=== PATIENT | male | born 1950 ===

== ENCOUNTER 2017-03-12 08:22 | Day surgery (SDC) | payer MEDICARE ==
[2017-03-10 09:43] VITALS: BMI 22.1
[2017-03-12] MEDS ORDERED: Atropine 0.4 mg/ml Inj (1 mL) ONE (10:44)
[2017-03-12] MEDS ORDERED: Propofol 10 mg/ml Inj (20 ML) ONE (10:44)
[2017-03-12] MEDS ORDERED: Sodium Chloride 0.9% 1,000 ML IV SCH (11:15)
[2017-03-12 14:08] VITALS: BP 142/87; PULSE 56; RESP 16; TEMP 97.5; O2SAT 100
== END 2017-03-12 13:00 | disposition home or self-care (01) ==
LOC: ENDO 08:22
PROVIDERS: ATTEND Internal Medicine Gastroenterology
DX: Z12.11 Encounter for screening for malignant neoplasm of colon (principal); K57.30 Diverticulosis of large intestine without perforation or abscess without bleeding; K64.8 Other hemorrhoids; Z86.73 Personal history of transient ischemic attack (TIA), and cerebral infarction without residual deficits
CPT/HCPCS: 45378; J0461; J2001; J2704; J7040 ×2

== ENCOUNTER 2018-06-15 04:51 | Observation (INO) | payer MEDICARE, OTHER ==
[2018-06-15 05:16] VITALS: BMI 22.6
[2018-06-15] MEDS ORDERED: Sodium Chloride 0.9% 1,000 ML IV STA ×2 (05:17→06:55)
[2018-06-15] MEDS ORDERED: Morphine 4 mg/ml ISec IVP STA ×2 (05:17→06:09)
--- NOTE | 2018-06-15 05:20 | ED PDOC ---
Arrival/HPI - General Time Seen by Provider: 06/15/18 05:09 Historian: Patient - History of Present Illness Narrative History of Present Illness (Text): 06/15/18 05:16 Sami Shay is a 67 year old male, whose past medical history includes kidney stones, who presents to the Emergency department complaining of worsening right flank pain since waking up this morning. Patient states symptoms are similar to previous episode of kidney stones. Patient denies any fever, chills, nausea, vomiting, diarrhea, urinary symptoms, headache, dizziness, or any other complaints. Symptom Onset: Gradual Symptom Course: Unchanged Activities at Onset: Light Context: Home Past Medical History - Provider Review Nursing Documentation Reviewed: Yes - Cardiac Hx Pacemaker: No - Hematological/Oncological Hx Blood Transfusions: No Hx Blood Transfusion Reaction: No - Musculoskeletal/Rheumatological Hx Musculoskeletal Disorders: Yes - Psychiatric Hx Emotional Abuse: No Hx Physical Abuse: No - Anesthesia Hx Anesthesia Reactions: No Hx Malignant Hyperthermia: No - Suicidal Assessment Feels Threatened In Home Enviroment: No Family/Social History - Physician Review Nursing Documentation Reviewed: Yes Family/Social History: Unknown Family HX Hx Alcohol Use: Yes (OCC BEER) Allergies/Home Meds Allergies/Adverse Reactions: Allergies No Known Allergies Allergy (Verified 06/15/18 05:16) Home Medications: Home Meds Medication Instructions Recorded Confirmed No Known Home Med 06/15/18 06/15/18 Review of Systems - Physician Review All systems were reviewed & negative as marked: Yes - Review of Systems Constitutional: Normal. absent: Fevers Eyes: Normal ENT: Normal Respiratory: Normal. absent: SOB, Cough Cardiovascular: Normal. absent: Chest Pain Gastrointestinal: Normal. absent: Abdominal Pain, Diarrhea, Nausea, Vomiting Genitourinary Male: Normal. absent: Dysuria, Frequency, Hematuria, Urinary Output Changes Musculoskeletal: Back Pain. absent: Neck Pain Skin: Normal. absent: Rash Neurological: Normal. absent: Headache, Dizziness Endocrine: Normal Hemo/Lymphatic: Normal Psychiatric: Normal Physical Exam Vital Signs Reviewed: Yes Vital Signs Temp Pulse Resp BP Pulse Ox 06/15/18 05:13 97.7 F 62 18 179/88 H 100 Temperature: Afebrile Blood Pressure: Normal Pulse: Regular Respiratory Rate: Normal Appearance: Positive for: Well-Appearing, Non-Toxic, Comfortable Pain Distress: None Mental Status: Positive for: Alert and Oriented X 3 - Systems Exam Head: Present: Atraumatic, Normocephalic Pupils: Present: PERRL Extroacular Muscles: Present: EOMI Conjunctiva: Present: Normal Mouth: Present: Moist Mucous Membranes Neck: Present: Normal Range of Motion. No: Meningeal Signs, MIDLINE TENDERNESS, Paraspinal Tenderness Respiratory/Chest: Present: Clear to Auscultation, Good Air Exchange. No: Respiratory Distress, Accessory Muscle Use Cardiovascular: Present: Regular Rate and Rhythm, Normal S1, S2. No: Murmurs Abdomen: No: Tenderness, Distention, Peritoneal Signs Back: Present: Normal Inspection. No: CVA Tenderness, Midline Tenderness, Paraspinal Tenderness Upper Extremity: Present: Normal Inspection. No: Cyanosis, Edema Lower Extremity: Present: Normal Inspection. No: Edema Neurological: Present: GCS=15, CN II-XII Intact, Speech Normal Skin: Present: Warm, Dry, Normal Color. No: Rashes Psychiatric: Present: Alert, Oriented x 3, Normal Insight, Normal Concentration Medical Decision Making ED Course and Treatment: 06/15/18 05:16 Impression: 67 year old male complaining of worsening right flank pain today. Plan: -- CT Abdomen and Pelvis w/o contrast -- Labs -- Urinalysis -- IV fluids -- Zofran -- Morphine -- Reassess and disposition Prior Visits: Notes and results from previous visits were reviewed. Progress Notes: 06/15/18 06:16 CT Abdomen and Pelvis: The visualized lung bases are unremarkable. Normal unenhanced liver. Normal gallbladder and extrahepatic biliary system. Normal unenhanced spleen. Normal pancreas. Normal bilateral adrenal glands. Normal size of the right kidney. There is no right renal mass. There are no right renal calculi. 3 mm obstructing stone of the distal right ureter just above the right ureterovesical junction. Normal size of the left kidney. There is no left renal mass. 4 mm nonobstructing stone in the lower calyceal group of the left kidney. There is no left hydronephrosis. Normal visualized left ureter. Normal visualized stomach. Normal small intestine. Uncomplicated diverticulosis and moderate amount of fecal residue in the colon. The appendix is visualized and appears normal. There is no demonstrated peritoneal fluid. Normal abdominal aorta. Normal inferior vena cava. Normal retroperitoneum. Normal urinary bladder. There is no pelvic mass lesion or lymphadenopathy. There is no pelvic fluid. Normal abdominal wall. Grade one anterolisthesis of L3 on L4 measuring 4.7 mm. Mild right hydrocele. IMPRESSION: Obstructing stone of the distal third of the right ureter just above the ureterovesical junction with mild right hydroureteronephrosis. Uncomplicated colonic diverticulosis. Moderate constipation. Electronically signed on Jun 15, 2018 6:13:54 AM EST by: Daniel Ferris M.D., Certified by ABR, MSK, Neuroradiology 06/15/18 06:[address] Carrillo, who is aware and agrees with plan. Accepts pt in to his service. Pt will go to [facility] observation for renal colic. Requests Dr. Rogers on consult. - Lab Interpretations I have reviewed the lab results: Yes - RAD Interpretation Foreign Trade Teacher: Radiologist - Scribe Statement The provider has reviewed the documentation as recorded by the Scribe Jyoti Montero Provider Scribe Attestation: All medical record entries made by the Scribe were at my direction and personal ly dictated by me. I have reviewed the chart and agree that the record accurately reflects my personal performance of the history, physical exam, medical decision making, and the department course for this patient. I have also personally directed, reviewed, and agree with the discharge instructions and disposition. Disposition/Present on Arrival - Present on Arrival Any Indicators Present on Arrival: No History of DVT/PE: No History of Uncontrolled Diabetes: No Urinary Catheter: No History of Decub. Ulcer: No History Surgical Site Infection Following: None - Disposition Have Diagnosis and Disposition been Completed?: Yes Diagnosis: Renal colic, Intractable pain Disposition: HOSPITALIZED Disposition Time: 06:56 Condition: STABLE Referrals: Reggie Carrillo MD [Primary Care Provider] - Follow up with primary
[2018-06-15 06:06] LABS: ALB/GLOB RATIO 1.3 (1.1-1.8); ALBUMIN 4.1 g/dL (3.0-4.8); ALT/SGPT 43 U/L (7-56); AST/SGOT 30 U/L (17-59); BLOOD UREA NITROGEN 22 mg/dL (7-21); CALCIUM 9.2 mg/dL (8.4-10.5); GFR NON-AFRICAN AMERICAN > 60; HEMOGLOBIN 13.9 g/dL (14.0-18.0); MEAN CELL VOLUME 79.6 fl (80.0-105.0); MEAN CORPUSCULAR HGB CONC 32.6 g/dl (31.0-37.0); RBC 5.35 10^6/uL (3.5-6.1); RED CELL DISTRIBUTION WIDTH 15.1 % (11.5-14.5); WHITE BLOOD COUNT 6.4 10^3/uL (4.5-11.0)
[2018-06-15 08:29] LABS: PH,URINE 6.5 (4.7-8.0); URINE BILIRUBIN NEGATIVE (NEGATIVE); URINE BLOOD NEGATIVE (NEGATIVE); URINE GLUCOSE (UA) NEGATIVE (NEGATIVE); URINE LEUKOCYTE ESTERASE NEGATIVE Leu/uL (NEGATIVE); URINE PROTEIN NEGATIVE mg/dL (<30 mg/dL); URINE UROBILINOGEN 0.2 E.U./dL (<1 E.U./dL)
[2018-06-15 08:30] LABS: URINE APPEARANCE CLEAR (CLEAR); URINE COLOR YELLOW (YELLOW)
[2018-06-15] MEDS ORDERED: Oxycodone/Acetaminophen 5/325 mg Tab PO PRN (09:19)
--- NOTE | 2018-06-15 12:06 | CT ---
Date of service: 06/15/2018 PROCEDURE: CT Abdomen and Pelvis without intravenous contrast HISTORY: right flank pain COMPARISON: None. TECHNIQUE: Technique. Contrast dose: Radiation dose: Total exam DLP = 356.78 mGy-cm. This CT exam was performed using one or more of the following dose reduction techniques: Automated exposure control, adjustment of the mA and/or kV according to patient size, and/or use of iterative reconstruction technique. FINDINGS: LOWER THORAX: Unremarkable. LIVER: Unremarkable. No gross lesion or ductal dilatation. GALLBLADDER AND BILE DUCTS: Unremarkable. PANCREAS: Unremarkable. No gross lesion or ductal dilatation. SPLEEN: Unremarkable. ADRENALS: Unremarkable. No mass. KIDNEYS AND URETERS: Right hydronephrosis and hydroureter with a 3 millimeter obstructive calculus in the right distal ureter. 4 millimeter calculus in the lower pole the left kidney. VASCULATURE: Unremarkable. No aortic aneurysm. No aortic atherosclerotic calcification or mural plaque present. BOWEL: Unremarkable. No obstruction. No gross mural thickening. APPENDIX: Unremarkable. Normal appendix. PERITONEUM: Unremarkable. No free fluid. No free air. LYMPH NODES: Unremarkable. No enlarged lymph nodes. BLADDER: Unremarkable. REPRODUCTIVE: Mild right hydrocele. BONES: No acute fracture. OTHER FINDINGS: None. IMPRESSION: Right hydronephrosis and hydroureter with a 3 millimeter obstructive calculus in the right distal ureter. 4 millimeter calculus in the lower pole the left kidney. Mild right hydrocele.
[2018-06-15 15:52] VITALS: BP 118/67; PULSE 68; RESP 18; TEMP 98.8; O2SAT 97
--- NOTE | 2018-06-16 01:24 | CON ---
DATE: 06/15/2018 GENITOURINARY CONSULTATION CHIEF COMPLAINT: Right flank pain. HISTORY OF PRESENT ILLNESS: This is a 67-year-old male who is seen in [facility]. The patient reports he began having flank pain early yesterday. The pain progressed and became severe. He presented to the emergency department for evaluation. He denies any fever, chills, nausea or vomiting. He is voiding well with no dysuria, frequency, urgency or gross hematuria. He does report a history of kidney stone about 25 years ago. During his evaluation, the patient was found to have a 3 mm ureteral calculus. He was admitted for observation and pain management. consultation was requested regarding the above. PAST MEDICAL HISTORY: Has chronic back pain. Denies diabetes. Denies hypertension. Denies cardiac disease. MEDICATIONS: Include Flomax and Percocet in hospital. ALLERGIES: NO KNOWN DRUG ALLERGIES. FAMILY HISTORY: Noncontributory. SOCIAL HISTORY: He denies any smoking or EtOH use. PHYSICAL EXAMINATION: GENERAL: The patient is awake, alert. He is in no acute distress. He is answering questions. VITAL SIGNS: Show he is afebrile, temp of 98.8, BP 118/67, respirations 18. NECK: Supple. There is no adenopathy noted. CHEST: Reveals normal inspiratory effort. CARDIAC: Exam shows positive S1, S2. There is no peripheral edema. ABDOMEN: Soft, nontender, nondistended. There is no hepatosplenomegaly. There is no costovertebral angle tenderness. GENITOURINARY: Phallus is normal. Scrotum is normal. Testes bilaterally descended, nontender, no masses. Epididymides are normal. EXTREMITIES: Show no cyanosis or edema. LABORATORY EXAM: WBC count 6.4. Urinalysis negative for blood, negative for leukocytes, nitrites are negative. Creatinine 1.1 with a GFR greater than 60. On radiologic exam, the patient had a CT scan of the abdomen and pelvis which showed a 3 mm obstructing stone in the right distal ureter. There was a 4 mm stone in the lower pole of the left kidney. IMPRESSION AND PLAN: This is a 67-year-old male with bilateral urolithiasis. His pain is caused by the obstructing stone in the right distal ureter. The patient has not had any pain medications since last night, he is tolerating a diet, he is afebrile, and in my opinion, the patient can be discharged home with analgesics on Flomax. If the patient's pain becomes severe again and is not managed with oral analgesics, he should return to the emergency room and he can be scheduled for a stent insertion. The patient should be able to pass this stone at home spontaneously with medical therapy. I have discussed this with the patient and he agrees and wants to go home. He will follow up with me in the office in approximately 2-3 weeks and we will re-image him to see that the stone has passed and hydronephrosis has resolved. Thank you for allowing me to participate in the care of this patient. I will follow him with you. Jay Rogers MD
== END 2018-06-15 20:06 | disposition home or self-care (01) ==
LOC: ED 04:51 → ERH 06:54 → 5RNO 08:59
PROVIDERS: ADMIT Internal Medicine; ATTEND Internal Medicine
DX: K57.30 Diverticulosis of large intestine without perforation or abscess without bleeding (principal); K59.00 Constipation, unspecified; N13.2 Hydronephrosis with renal and ureteral calculous obstruction; Z87.442 Personal history of urinary calculi; M54.9 Dorsalgia, unspecified; G89.29 Other chronic pain
CPT/HCPCS: 74176; 80053; 81003; 85027; 96374; 96375; 96376; 99285; G0378; J2270; J2405; J7030

== ENCOUNTER 2018-07-18 10:25 | Outpatient (CLI) | payer MEDICARE | END 2018-07-18 10:26 | disposition home or self-care (01) | LOC: RAD 10:25 ==

== ENCOUNTER 2018-09-12 11:59 | Observation (INO) | payer MEDICARE, OTHER ==
[2018-09-12 12:09] VITALS: BMI 21.2
[2018-09-12 13:13] LABS: BASO # 0.03 K/mm3 (0.0-2.0); BASO % 0.5 % (0.0-3.0); EOS # 0.1 (0.0-0.7); EOS % 1.4 % (1.5-5.0); HEMOGLOBIN 14.2 g/dL (14.0-18.0); LYMPH # 1.3 (1.2-3.4); LYMPH % 19.8 % (22.0-35.0); MEAN CELL VOLUME 79.2 fl (80.0-105.0); MEAN CORPUSCULAR HEMOGLOBIN 26.3 pg (25.0-35.0); MEAN CORPUSCULAR HGB CONC 33.3 g/dl (31.0-37.0); MEAN PLATELET VOLUME 10.1 fl (7.0-11.0); MONO # 0.5 (0.1-0.6); MONO % 7.8 % (1.0-6.0); RBC 5.39 10^6/uL (3.5-6.1); RED CELL DISTRIBUTION WIDTH 14.7 % (11.5-14.5); WHITE BLOOD COUNT 6.5 10^3/uL (4.5-11.0)
[2018-09-12 13:25] LABS: ALB/GLOB RATIO 1.3 (1.1-1.8); ALBUMIN 4.3 g/dL (3.0-4.8); ALT/SGPT 19 U/L (7-56); AST/SGOT 32 U/L (17-59); BLOOD UREA NITROGEN 19 mg/dL (7-21); CALCIUM 9.7 mg/dL (8.4-10.5); GFR NON-AFRICAN AMERICAN > 60
[2018-09-12 13:36] LABS: TROPONIN I < 0.01 ng/mL
--- NOTE | 2018-09-12 13:41 | RAD ---
Date of service: 09/12/2018 HISTORY: chest pain COMPARISON: Comparison chest 02/21/2018. FINDINGS: LUNGS: No active pulmonary disease. PLEURA: No evidence of significant effusion or obvious pneumothorax. Minor biapical pleural thickening. CARDIOVASCULAR: No obvious aortic atherosclerotic calcification present. Normal cardiac size. No pulmonary vascular congestion. OSSEOUS STRUCTURES: Mild multilevel degenerative spondylosis thoracic spine VISUALIZED UPPER ABDOMEN: Normal. OTHER FINDINGS: None. IMPRESSION: No active disease. Minor biapical pleural thickening
[2018-09-12 13:46] LABS: URINE BILIRUBIN NEGATIVE (NEGATIVE); URINE BLOOD NEGATIVE (NEGATIVE); URINE GLUCOSE (UA) NEGATIVE (NEGATIVE); URINE LEUKOCYTE ESTERASE NEGATIVE Leu/uL (NEGATIVE); URINE PROTEIN NEGATIVE mg/dL (<30 mg/dL); URINE UROBILINOGEN 0.2 E.U./dL (<1 E.U./dL)
[2018-09-12 13:50] LABS: URINE APPEARANCE CLEAR (CLEAR); URINE COLOR YELLOW (YELLOW)
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
--- NOTE | 2018-09-12 14:20 | CARD ---
APPROVED REPORT Date of service: 09/12/2018 EKG Measurement Heart [id number] <Conclusion> Normal sinus rhythm Left bundle branch block Abnormal ECG
[2018-09-12 17:29] VITALS: RESP 20
[2018-09-12] MEDS ORDERED: Enoxaparin 60 mg Syringe SC STA (18:56)
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
[2018-09-13] MEDS ORDERED: Influenza Vaccine 60 mcg/0.5 mL SYR (4YR UP) IM ONE (00:32)
[2018-09-13] MEDS ORDERED: Pneumococcal 23-Valent Vaccine IM ONE (00:32)
[2018-09-13 04:45] LABS: BASO # 0.03 K/mm3 (0.0-2.0); BASO % 0.5 % (0.0-3.0); EOS # 0.2 (0.0-0.7); EOS % 2.9 % (1.5-5.0); HEMOGLOBIN 14.6 g/dL (14.0-18.0); LYMPH % 32.8 % (22.0-35.0); MEAN CELL VOLUME 79.6 fl (80.0-105.0); MEAN CORPUSCULAR HEMOGLOBIN 26.4 pg (25.0-35.0); MEAN CORPUSCULAR HGB CONC 33.1 g/dl (31.0-37.0); MEAN PLATELET VOLUME 9.5 fl (7.0-11.0); MONO # 0.5 (0.1-0.6); MONO % 8.1 % (1.0-6.0); RBC 5.54 10^6/uL (3.5-6.1); RED CELL DISTRIBUTION WIDTH 14.7 % (11.5-14.5); WHITE BLOOD COUNT 5.9 10^3/uL (4.5-11.0)
[2018-09-13 05:13] LABS: TROPONIN I < 0.01 ng/mL
[2018-09-13 05:15] LABS: LDL CHOLESTEROL 143 mg/dL (0-129)
[2018-09-13 05:16] LABS: ALB/GLOB RATIO 1.3 (1.1-1.8); ALBUMIN 4.2 g/dL (3.0-4.8); ALT/SGPT 19 U/L (7-56); AST/SGOT 24 U/L (17-59); BLOOD UREA NITROGEN 17 mg/dL (7-21); CALCIUM 9.7 mg/dL (8.4-10.5); GFR NON-AFRICAN AMERICAN > 60; HDL CHOLESTEROL 56 mg/dL (29-60)
[2018-09-13 06:50] VITALS: O2SAT 97
[2018-09-13 08:09] VITALS: TEMP 97.9
[2018-09-13] MEDS ORDERED: Aminophylline 25 mg/ml Inj ONE (09:20)
[2018-09-13 11:04] VITALS: BP 120/70; PULSE 64
[2018-09-13] MEDS ORDERED: Pantoprazole 40 mg EC Tab PO SCH (13:15)
--- NOTE | 2018-09-13 14:56 | PN ---
DATE: 09/13/2018 REASON FOR THE CONSULTATION: Followup chest pain, cardiac evaluation. SUBJECTIVE: The patient denies chest pain, shortness of breath, or any palpitation, waiting to go for stress test and echo today. OBJECTIVE: GENERAL: Not in apparent distress. VITAL SIGNS: Temperature is afebrile, heart rate 64, blood pressure 120/70. HEENT: PERRLA. Extraocular muscles intact. NECK: Supple. No carotid bruits or thyromegaly. CHEST: Clear to auscultation. HEART: S1 and S2, regular. ABDOMEN: Soft. EXTREMITIES: Clubbing, cyanosis negative. LABORATORY DATA: Blood workup: WBC 5.9, hemoglobin 14.7, hematocrit 44.1, and platelet count 241. Chemistry shows sodium 139, potassium 4.5, chloride 105, carbon dioxide 30, anion gap of 9, BUN 17, creatinine 1. Troponin 0.01 x3 negative. TSH 4.42, cholesterol 251, LDL 143, HDL 56. IMPRESSION: A 67-year-old male with no significant past medical history, admitted with three episodes of chest pain, completely resolved itself, appears to be atypical, so far no evidence of acute myocardial infarction. The patient has a baseline left bundle-branch block. PLAN: To do echo today and Lexiscan. We will start medium dose of atorvastatin for hyperlipidemia. Further recommendations depending upon the hospital course. Hemoglobin A1c is pending. We will put at least 20 mg of atorvastatin from today because of hyperlipidemia. Once stress test is done, we will follow with you with echo. Thank you Dr. Carrillo for providing us the opportunity in taking care of the patient, Sami Waters. We will follow with you. Annemarie Bauer MD
--- NOTE | 2018-09-13 18:43 | CARD ---
APPROVED REPORT Date of service: 09/13/2018 EXAM: Two-dimensional and M-mode echocardiogram with Doppler and color Doppler. INDICATION Chest Pain 2D DIMENSIONS Left Atrium (2D)4.0 (1.6-4.0cm)IVSd1.0 (0.7-1.1cm) LVDd5.0 (3.9-5.9cm)PWd0.9 (0.7-1.1cm) LVDs3.8 (2.5-4.0cm)FS (%) 23.4 % LVEF (%)46.9 (>50%) M-Mode DIMENSIONS Aortic Root3.10 (2.2-3.7cm)Aortic Cusp Exc.2.10 (1.5-2.0cm) Aortic Valve AoV Peak Vrxiblif38.6cm/Petra Peak GR.3mmHg Mitral Valve MV E Pfmuosmv70.4cm/sMV A Xisgyoub29.8cm/sE/A ratio0.6 TDI E/Lateral E'0.0E/Medial E'0.0 Tricuspid Valve TR Peak [id number]/sRAP [id number] Peak Gr.19mmHg [id number] LEFT VENTRICLE The left ventricle is normal size. There is borderline to mild concentric left ventricular hypertrophy. The systolic function is mildly impaired.EF-45% Septal motion consistent with conduction abnormality. There is mildly global hypokinesis of the left ventricle. Transmitral Doppler flow pattern is Grade III-reversible restrictive diastolic dysfunction. No left ventricle thrombus noted on this study. There is no ventricular septal defect visualized. There is no left ventricular aneurysm. There is no mass noted in the left ventricle. RIGHT VENTRICLE The right ventricle is normal size. There is normal right ventricular wall thickness. The right ventricular systolic function is normal. ATRIA The left atrium is borderline dilated. The right atrium size is normal. The interatrial septum is intact with no evidence for an atrial septal defect. AORTIC VALVE The aortic valve is thickened but opens well. No aortic regurgitation is present. There is no aortic valvular stenosis. There is no aortic valvular vegetation. MITRAL VALVE The mitral valve is thickened but opens well. Mitral regurgitation is mild. There is no mitral valve stenosis. There is no evidence of mitral valve prolapse. TRICUSPID VALVE The tricuspid valve leaflets are thickened , but open well. There is mild tricuspid regurgitation.RVSP-29 mmof Hg. There is no tricuspid valve stenosis. There is no tricuspid valve prolapse or vegetation. PULMONIC VALVE The pulmonary valve is normal in structure. There is no pulmonic valvular regurgitation. There is no pulmonic valvular stenosis. GREAT VESSELS The aortic root is normal in size. The ascending aorta is normal in size. The pulmonary artery is normal. The IVC is normal in size and collapses >50% with inspiration. PERICARDIAL EFFUSION There is no pleural effusion. There is no pericardial effusion. <Conclusion> The left ventricle is normal size. There is borderline to mild concentric left ventricular hypertrophy. The systolic function is mildly impaired.EF-45% Mitral regurgitation is mild. There is mild tricuspid regurgitation.RVSP-29 mmof Hg. The IVC is normal in size and collapses >50% with inspiration. There is no pericardial effusion.
--- NOTE | 2018-09-13 22:12 | CARD ---
APPROVED REPORT Date of service: 09/13/2018 Height:5 ft 8 in Weight:140lbs Electronically Approved: 09/13/2018 11:32:17 EXAM: Myocardial Perfusion REST/STRESS Stress Test Type: Pharmacologic Imaging Protocol The imaging protocol used to acquire images was Rest Tc-99m/stress Tc-99m 1 day Rest Spect myocardial perfusion imaging was performed in supine position 45 minutes following the injection of 10.3 mCi of Tc-99 Myoview. At peak stress, the patient was injected intravenously with 30.9mCi of Tc-99 tetrofosmin after an infusion time of 0 minutes and 10 seconds. Gated Stress Spect was performed 75 minutes after intravenous Tc-99 Myoview injection. The images were gated to evaluate regional wall motion and calculate ventricular ejection fraction.Images were reconstructed using backfilter projection method in short horizontal and verticle long axis. Spect slices were generated. LV Perfusion The quality of the study is good. The left ventricle is mildly enlarged in size. The right ventricle is unremarkable. The lung uptake is within normal limits. The distribution of tracer reveals an area of moderately decreased perfusion in the mid to basal anteroseptal, apical and most of the inferior [place] on the stress study. The remainder of the LV myocardium is unremarkable. The rest myocardial perfusion study shows partial improvement of the anteroseptal and apical defects and no signifiicant change in the inferior defect. Wall Motion Wall motion study shows good contractility of the left ventricle. LVEF =54%. Conclusion 1. Probably abnormal SPECT myocardial perfusion study. 2. Partially reversible, anteroseptal and apical defects are suspicious of ischemia. 3. Fixed, linferior defect is most liklely due to diaphragmatic attenuation. 4. Normal gated wall motion of the left ventrcle.
--- NOTE | 2018-09-14 22:08 | DS ---
HISTORY OF PRESENT ILLNESS: This is a 67-year-old man who presented to the emergency room with chest pain. The patient states he develops this pain every time after he eats, at his mid chest and radiating across his upper chest. His troponin and labs were done. Troponin's were negative. He is held for overnight observation. Repeat troponins were negative. Echocardiogram and thallium stress test were done today. He is asymptomatic, comfortable and looking forward to discharge to home. We have placed him on a proton-pump inhibitor, having the results of the thallium stress. He will follow up with me in the office in two days regarding the results of his stress test and his symptoms. FINAL DISCHARGE DIAGNOSES: 1. Gastroesophageal reflux disease. 2. Atypical chest pain. 3. Status post transient ischemic attack for a patent foramen ovale. Reggie Carrillo MD
== END 2018-09-13 15:28 | disposition home or self-care (01) ==
LOC: ED 11:59 → ERH 14:27 → 3RNO 16:35
PROVIDERS: ADMIT Internal Medicine; ATTEND Internal Medicine
DX: R07.9 Chest pain, unspecified (principal); I44.7 Left bundle-branch block, unspecified; Z86.73 Personal history of transient ischemic attack (TIA), and cerebral infarction without residual deficits; Z87.442 Personal history of urinary calculi
CPT/HCPCS: 36415; 71045; 78452; 80053; 80061; 81003; 82550; 83036; 83615; 83735; 84100; 84443; 84484; 85025; 93005; 93017; 93306; 99285; A9502; G0378; J1650; J2785